=== PATIENT | male | born 1975 | race Caucasian/White ===

== ENCOUNTER 2024-08-12 12:36 | Emergency (ER) | payer OTHER ==
[~2024-08-12] VITALS: Ht 175.3 cm; Wt 81.6 kg
[2024-08-12] MEDS ORDERED: IBUP-1490 PO (13:42)
[2024-08-12 13:52] VITALS: BP 120/80; TEMP 98.2; O2SAT 99
== END 2024-08-12 13:52 | disposition home or self-care (01) ==
LOC: ER 12:49
DX: S00.83XA Contusion of other part of head, initial encounter (principal); M45.9 Ankylosing spondylitis of unspecified sites in spine; V29.888A Rider (driver) (passenger) of other motorcycle injured in other specified transport accidents, initial encounter; Y93.89 Activity, other specified; Y92.415 Exit ramp or entrance ramp of street or highway as the place of occurrence of the external cause; Y99.8 Other external cause status